=== PATIENT | female | born 1950 | race Caucasian/White ===

== ENCOUNTER 2017-03-10 16:20 | Inpatient (IN) | payer MEDICARE ==
--- NOTE | 2017-03-10 16:35 | ED Physician Chart ---
Chief Complaint/HPI - Patient Information Date Seen:: 03/10/17 Time Seen:: 16:30 Chief Complaint:: difficult behavior History of Present Illness:: pt sent from [place] for difficult behavior...she has dementia hx and has been refusing meds recently. pen[facility]entiary hx of depression. pt has no complaints but is unsure why was sent here. pt has a small nonreducable umbilical hernia that has been same/ firm/ nonreducable x at least 1 month. she is eating ok w non/v/d. pain is not worse today. no fever. hx of spinal pain Allergies:: Allergies Allergy/AdvReac Type Severity Reaction Status Date / Time No Known Allergies Allergy Verified 03/10/17 16:27 Historian:: Patient Review of Systems - Review of Systems General/Constitutional: No fever, No chills, No weight loss, No weakness, No diaphoresis, No edema, No loss of appetite Skin: No skin lesions, No rash, No bruising Head: No headache, No light-headedness Eyes: No loss of vision, No pain, No diplopia ENT: No earache, No nasal drainage, No sore throat, No tinnitus Neck: Neck pain, No swelling, No thyromegaly, No stiffness, No mass noted Cardio Vascular: No chest pain, No palpitations, No PND, No orthopnea, No edema Pulmonary: No SOB, No cough, No sputum, No wheezing GI: No nausea, No vomiting, No diarrhea, No pain, No melena, No hematochezia, No constipation, No hematemesis G/U: No dysuria, No frequency, No hematuria Musculoskeletal: No bone or joint pain, Back pain, No muscle pain Endocrine: No polyuria, No polydipsia Psychiatric: No prior psych history, No depression, No anxiety, No suicidal ideation Hematopoietic: No bruising, No lymphadenopathy Allergic/Immuno: No urticaria, No angioedema Neurological: No syncope, No focal symptoms, No weakness, No paresthesia, No headache, No seizure, No dizziness, No confusion, No vertigo Past Medical History - Past Medical History Past Medical History: Other (umbilical hernia, chronic spinal pain) Social History: Care Facility Psychiatricy History: Depression Medication: Reviewed Family Medical History - Family Member Maternal History Unknown: Yes Physical Exam - Physical Examination General/Constitutional: Awake, Well-developed, well-nourished, Alert, No distress, GCS 15, Non-toxic appearing, Ambulatory Other Gen/Cons comments:: pt ambulates around ed w/o trouble. some shuffeling of gait. alert and cooperative on arrival. wn/wh. Head: Atraumatic Eyes: Lids, conjuctiva normal, PERRL, EOMI Skin: Nl inspection, No rash, No skin lesions, No ecchymosis, Well hydrated, No lymphadenopathy ENMT: External ears, nose nl, Nasal exam nl, Lips, teeth, gums nl Neck: Nontender, Full ROM w/o pain, No JVD, No nuchal rigidity, No bruit, No mass, No stridor Respiratory: Nl effort/Exclusion, Clear to Auscultation, No Wheeze/Rhonchi/Rales Cardio Vascular: RRR, No murmur, gallop, rubs, NL S1 S2 GI: No tenderness/rebounding/guarding, No organomegaly, No hernia, Normal BS's, Nondistended, No mass/bruits, No McBurney tenderness Other GI comments:: 1-2 cm firm hernia palpable at left umbilicus...nontndr and is cw umb hernia( likely omental//but not tndr/no sx of gi occlusive)) pos nabs. no rebound. : No CVA tenderness Extremities: No tenderness or effusion, Full ROM, normal strength in all extremities, No edema, Normal digits & nails Neuro/Psych: Alert/oriented, DTR's symmetric, Normal sensory exam, Normal motor strength, Judgement/insight normal, Mood normal, Normal gait, No focal deficits Misc: normal gait, Normal back, No paraspinal tenderness Labs/Radiology/EKG Results - Lab Results Results: Laboratory Tests 03/10/17 03/10/17 03/10/17 16:35 16:57 16:57 WBC 7.1 RBC 4.14 Hgb 13.6 Hct 41.0 MCV 99.1 MCH 32.9 H MCHC Differential 33.2 RDW 12.8 Plt Count 222 MPV 7.4 Neutrophils % 45.8 Lymphocytes % 40.5 Monocytes % 11.5 H Eosinophils % 1.8 Basophils % 0.4 Sodium 137 Potassium 4.0 Chloride 112 H Carbon Dioxide 24.5 Anion Gap 4.5 L BUN 19 Creatinine 0.8 Est GFR ( Amer) > 60.0 Est GFR (Non-Af Amer) > 60.0 BUN/Creatinine Ratio 23.8 Glucose 82 Whole Bld Lactic Acid Calcium 9.3 Total Bilirubin 0.4 AST 16 ALT 12 Alkaline Phosphatase 82 Troponin I Total Protein 6.7 Albumin 4.0 Globulin 2.7 Albumin/Globulin Ratio 1.5 Triglycerides 129 Cholesterol 180 LDL Cholesterol Direct 114 HDL Cholesterol 50 TSH Salicylates < 25.0 L Urine Opiates Screen NEGATIVE Urine Methadone Screen NEGATIVE Acetaminophen < 10.0 L Ur Barbiturates Screen NEGATIVE Ur Tricyclics Screen NEGATIVE Ur Phencyclidine Scrn NEGATIVE Amphetamines Screen NEGATIVE U Methamphetamines Scrn NEGATIVE U Benzodiazepines Scrn POSITIVE H U Cocaine Metab Screen NEGATIVE U Cannabinoids Screen NEGATIVE Ethyl Alcohol < 10 03/10/17 03/10/17 03/10/17 16:57 16:57 16:57 WBC RBC Hgb Hct MCV MCH MCHC Differential RDW Plt Count MPV Neutrophils % Lymphocytes % Monocytes % Eosinophils % Basophils % Sodium Potassium Chloride Carbon Dioxide Anion Gap BUN Creatinine Est GFR ( Amer) Est GFR (Non-Af Amer) BUN/Creatinine Ratio Glucose Whole Bld Lactic Acid 1.08 Calcium Total Bilirubin AST ALT Alkaline Phosphatase Troponin I 0.01 Total Protein Albumin Globulin Albumin/Globulin Ratio Triglycerides Cholesterol LDL Cholesterol Direct HDL Cholesterol TSH 1.29 Salicylates Urine Opiates Screen Urine Methadone Screen Acetaminophen Ur Barbiturates Screen Ur Tricyclics Screen Ur Phencyclidine Scrn Amphetamines Screen U Methamphetamines Scrn U Benzodiazepines Scrn U Cocaine Metab Screen U Cannabinoids Screen Ethyl Alcohol ED Septic Shock - . Is Septic Shock (SBP<90, OR Lactate>4 mmol\L) present?: No Reassessment (Disposition) - Reassessment Reassessment Condition:: Unchanged - Diagnosis Diagnosis:: 1 difficult behavior 2 medically clear for geripsych admission 3 chronic umbilical hernia (incarcerated but no strangulation) - Patient Disposition Admitted to:: [facility] Condition at Disposition:: Unchanged ED Discharge Plan - Patient Disposition Admit/Discharge/Transfer: PT DISCHARGED HOME
[2017-03-10 17:07] LABS: % BASOPHILS 0.4 % (0.0-2.0); % EOSINOPHILS 1.8 % (0.0-5.0); % LYMPHOCYTES 40.5 % (20.0-50.0); % MONOCYTES 11.5 % (2.0-10.0); % NEUTROPHILS 45.8 % (40.0-80.0); HEMOGLOBIN 13.6 gm/dL (11.7-16.1); MEAN CELL VOLUME 99.1 fl (81-100); MEAN CORPUSCULAR HEMOGLOBIN 32.9 pg (27.0-31.0); MEAN CORPUSCULAR HGB CONC 33.2 pg (28.0-36.0); MEAN PLATELET VOLUME 7.4 fl; NEUTROPHILE ABSOLUTE 3.3 Th/cmm (1.8-8.0); PLATELET COUNT 222 Th/cmm (150-400); RED BLOOD COUNT 4.14 Mil/cmm (3.80-5.20); RED CELL DISTRIBUTION WIDTH 12.8 % (11.5-20.0); WHITE BLOOD COUNT 7.1 Th/cmm (4.8-10.8)
[2017-03-10 17:29] LABS: ACETAMINOPHEN < 10.0 ug/mL (10.0-30.0); ALB/GLOB RATIO 1.5 (1.0-1.8); ALKALINE PHOSPHATASE 82 U/L (34-104); ANION GAP 4.5 (7.0-16.0); BILIRUBIN,TOTAL 0.4 mg/dL (0.3-1.0); BUN - UREA NITROGEN 19 mg/dL (7-25); BUN/CREATININE RATIO 23.8; CALCIUM SERUM 9.3 mg/dL (8.6-10.3); CARBON DIOXIDE 24.5 mEq/L (21.0-31.0); CHLORIDE 112 mEq/L (98-107); CHOLESTEROL 180 mg/dL (<200); CREATININE - SERUM 0.8 mg/dL (0.6-1.2); GLUCOSE 82 mg/dL (70-105); SGOT 16 U/L (13-39); SGPT/ALT 12 U/L (7-52); SODIUM SERUM 137 mEq/L (136-145); TRIGLYCERIDES 129 mg/dL (<150)
[2017-03-10 18:16] LABS: AMPHETAMINE URINE NEGATIVE (NEGATIVE); BARBITURATES URINE NEGATIVE (NEGATIVE); METHADONE URINE NEGATIVE (NEGATIVE)
[2017-03-10] MEDS ORDERED: Magnesium Hydroxide (MOM) 30 mL UDC PO PRN (20:05)
[2017-03-10] MEDS ORDERED: Maalox 30 mL Cup PO PRN (20:05)
[2017-03-11] MEDS ORDERED: Magnesium Hydroxide (MOM) 30 mL UDC PO PRN (08:15)
[2017-03-11] MEDS ORDERED: MAGNESIUM OXIDE 500 MG PO SCH (09:00)
[2017-03-11] MEDS: Multivitamin Tab PO SCH (09:26)
[2017-03-11] MEDS: Multivitamin w/ Minerals Tab PO SCH (11:20)
[2017-03-11] MEDS: Potassium Chloride 20 mEq ER Tab PO SCH (11:32)
[2017-03-11] MEDS: Pantoprazole 40 mg EC Tab PO SCH (13:20)
[2017-03-11] MEDS ORDERED: Hydrocodone/APAP 5mg/325mg Tab PO PRN (17:30)
[2017-03-12 08:35] LABS: ANION GAP 6.5 (7.0-16.0); BUN - UREA NITROGEN 16 mg/dL (7-25); BUN/CREATININE RATIO 22.9; CALCIUM SERUM 9.1 mg/dL (8.6-10.3); CARBON DIOXIDE 27.4 mEq/L (21.0-31.0); CHLORIDE 105 mEq/L (98-107); CREATININE - SERUM 0.7 mg/dL (0.6-1.2); GLUCOSE 92 mg/dL (70-105); POTASSIUM SERUM 3.9 mEq/L (3.5-5.1); SODIUM SERUM 135 mEq/L (136-145)
[2017-03-12] MEDS: Multivitamin w/ Minerals Tab PO SCH (08:47)
[2017-03-12] MEDS: Multivitamin Tab PO SCH (08:47)
[2017-03-12] MEDS: Potassium Chloride 20 mEq ER Tab PO SCH (08:47)
[2017-03-12] MEDS: Pantoprazole 40 mg EC Tab PO SCH (08:52)
[2017-03-13] MEDS: Pantoprazole 40 mg EC Tab PO SCH (08:31)
[2017-03-13] MEDS: Multivitamin w/ Minerals Tab PO SCH (08:31)
[2017-03-13] MEDS: Potassium Chloride 20 mEq ER Tab PO SCH (08:32)
[2017-03-13] MEDS: Multivitamin Tab PO SCH (08:32)
[2017-03-14] MEDS: Pantoprazole 40 mg EC Tab PO SCH (09:33)
[2017-03-14] MEDS: Multivitamin Tab PO SCH (09:33)
[2017-03-14] MEDS: Multivitamin w/ Minerals Tab PO SCH (09:33)
[2017-03-14] MEDS: Potassium Chloride 20 mEq ER Tab PO SCH (09:33)
[2017-03-15] MEDS: Potassium Chloride 20 mEq ER Tab PO SCH (08:24)
[2017-03-15] MEDS: Multivitamin w/ Minerals Tab PO SCH (08:24)
[2017-03-15] MEDS: Multivitamin Tab PO SCH (08:24)
[2017-03-15] MEDS: Pantoprazole 40 mg EC Tab PO SCH (08:24)
[2017-03-16] MEDS: Multivitamin Tab PO SCH (08:33)
[2017-03-16] MEDS: Potassium Chloride 20 mEq ER Tab PO SCH (08:34)
[2017-03-16] MEDS: Multivitamin w/ Minerals Tab PO SCH (08:34)
[2017-03-16] MEDS: Pantoprazole 40 mg EC Tab PO SCH (08:34)
[2017-03-17] MEDS: Multivitamin w/ Minerals Tab PO SCH (08:23)
[2017-03-17] MEDS: Potassium Chloride 20 mEq ER Tab PO SCH (08:23)
[2017-03-17] MEDS: Pantoprazole 40 mg EC Tab PO SCH (08:25)
[2017-03-17] MEDS: Multivitamin Tab PO SCH (08:25)
[2017-03-18] MEDS: Pantoprazole 40 mg EC Tab PO SCH (09:03)
[2017-03-18] MEDS: Potassium Chloride 20 mEq ER Tab PO SCH (09:03)
[2017-03-18] MEDS: Multivitamin Tab PO SCH (09:03)
--- NOTE | 2017-03-19 08:13 | General Progress Note ---
Subjective - Review of Systems Service Date: 03/19/17 Subjective: Awake,Alert,Afebrile Objective - Results Result Diagrams: 03/10/17 16:57 03/12/17 07:40 Recent Labs: Laboratory Last Values WBC 7.1 Th/cmm (4.8-10.8) 03/10/17 16:57 RBC 4.14 Mil/cmm (3.80-5.20) 03/10/17 16:57 Hgb 13.6 gm/dL (11.7-16.1) 03/10/17 16:57 Hct 41.0 % (35.0-45.0) 03/10/17 16:57 MCV 99.1 fl (81-100) 03/10/17 16:57 MCH 32.9 pg (27.0-31.0) H 03/10/17 16:57 MCHC Differential 33.2 pg (28.0-36.0) 03/10/17 16:57 RDW 12.8 % (11.5-20.0) 03/10/17 16:57 Plt Count 222 Th/cmm (150-400) 03/10/17 16:57 MPV 7.4 fl 03/10/17 16:57 Neutrophils % 45.8 % (40.0-80.0) 03/10/17 16:57 Lymphocytes % 40.5 % (20.0-50.0) 03/10/17 16:57 Monocytes % 11.5 % (2.0-10.0) H 03/10/17 16:57 Eosinophils % 1.8 % (0.0-5.0) 03/10/17 16:57 Basophils % 0.4 % (0.0-2.0) 03/10/17 16:57 Sodium 135 mEq/L (136-145) L 03/12/17 07:40 Potassium 3.9 mEq/L (3.5-5.1) 03/12/17 07:40 Chloride 105 mEq/L (98-107) 03/12/17 07:40 Carbon Dioxide 27.4 mEq/L (21.0-31.0) 03/12/17 07:40 Anion Gap 6.5 (7.0-16.0) L 03/12/17 07:40 BUN 16 mg/dL (7-25) 03/12/17 07:40 Creatinine 0.7 mg/dL (0.6-1.2) 03/12/17 07:40 Est GFR ( Amer) > 60.0 ml/min (>90) 03/12/17 07:40 Est GFR (Non-Af Amer) > 60.0 ml/min 03/12/17 07:40 BUN/Creatinine Ratio 22.9 03/12/17 07:40 Glucose 92 mg/dL (70-105) 03/12/17 07:40 Whole Bld Lactic Acid 1.08 mmol/L (0.60-1.99) 03/10/17 16:57 Calcium 9.1 mg/dL (8.6-10.3) 03/12/17 07:40 Total Bilirubin 0.4 mg/dL (0.3-1.0) 03/10/17 16:57 AST 16 U/L (13-39) 03/10/17 16:57 ALT 12 U/L (7-52) 03/10/17 16:57 Alkaline Phosphatase 82 U/L (34-104) 03/10/17 16:57 Troponin I 0.01 ng/mL (0.01-0.05) 03/10/17 16:57 Total Protein 6.7 gm/dL (6.0-8.3) 03/10/17 16:57 Albumin 4.0 gm/dL (3.7-5.3) 03/10/17 16:57 Globulin 2.7 gm/dL 03/10/17 16:57 Albumin/Globulin Ratio 1.5 (1.0-1.8) 03/10/17 16:57 Triglycerides 129 mg/dL (<150) 03/10/17 16:57 Cholesterol 180 mg/dL (<200) 03/10/17 16:57 LDL Cholesterol Direct 114 mg/dL (75-193) 03/10/17 16:57 HDL Cholesterol 50 mg/dL (23-92) 03/10/17 16:57 TSH 1.29 uIU/ml (0.34-5.60) 03/10/17 16:57 Salicylates < 25.0 mg/L (30.0-100.0) L 03/10/17 16:57 Urine Opiates Screen NEGATIVE (NEGATIVE) 03/10/17 16:35 Urine Methadone Screen NEGATIVE (NEGATIVE) 03/10/17 16:35 Acetaminophen < 10.0 ug/mL (10.0-30.0) L 03/10/17 16:57 Ur Barbiturates Screen NEGATIVE (NEGATIVE) 03/10/17 16:35 Ur Tricyclics Screen NEGATIVE (NEGATIVE) 03/10/17 16:35 Ur Phencyclidine Scrn NEGATIVE (NEGATIVE) 03/10/17 16:35 Amphetamines Screen NEGATIVE (NEGATIVE) 03/10/17 16:35 U Methamphetamines Scrn NEGATIVE (NEGATIVE) 03/10/17 16:35 U Benzodiazepines Scrn POSITIVE (NEGATIVE) H 03/10/17 16:35 U Cocaine Metab Screen NEGATIVE (NEGATIVE) 03/10/17 16:35 U Cannabinoids Screen NEGATIVE (NEGATIVE) 03/10/17 16:35 Ethyl Alcohol < 10 mg/dL (0-10) 03/10/17 16:57 RPR NONREACTIVE (NONREACTIVE) 03/10/17 16:57 - Physical Exam Vitals and I&O: Vital Signs Temp 98.2 F 03/19/17 07:10 Pulse 65 03/19/17 07:10 Resp 19 03/19/17 07:10 BP 108/67 03/19/17 07:10 Pulse Ox 97 03/19/17 07:10 Intake & Output 03/18/17 03/19/17 03/19/17 18:59 06:59 18:59 Intake Total 1600 Balance 1600 Intake: Oral 1600 Other: # Voids 3 2 # Bowel Movements 1 Active Medications: Current Medications Acetaminophen (Tylenol) 650 mg PO Q4HR PRN PRN Reason: Mild Pain / Temp above 100 Stop: 05/09/17 20:04 Al Hydrox/Mg Hydrox/Simethicone (Maalox) 30 ml PO Q4HR PRN PRN Reason: GI DISTRESS Stop: 05/09/17 20:04 Baclofen (Lioresal) 10 mg PO BID BUD Stop: 05/10/17 10:59 Last Admin: 03/18/17 16:21 Dose: 10 mg Bisacodyl (Dulcolax 10 Mg Supp) 10 mg RC DAILY PRN PRN Reason: IF MOM NOT EFFECTIVE Stop: 05/10/17 08:14 Docusate Sodium (Colace) 100 mg PO DAILY PRN PRN Reason: Constipation Stop: 05/10/17 08:14 Donepezil HCl (Aricept) 5 mg PO HS BUD Stop: 05/11/17 20:59 Last Admin: 03/18/17 20:48 Dose: 5 mg Escitalopram Oxalate (Lexapro) 20 mg PO DAILY BUD PRN Reason: Protocol Stop: 05/10/17 17:29 Last Admin: 03/18/17 09:02 Dose: 20 mg Folic Acid (Folate) 1 mg PO DAILY BUD Stop: 05/10/17 10:59 Last Admin: 03/18/17 09:02 Dose: 1 mg Gabapentin (Neurontin) 300 mg PO HS BUD Stop: 05/10/17 20:59 Last Admin: 03/18/17 20:48 Dose: 300 mg Lorazepam (Ativan) 0.5 mg PO Q4HR PRN; Protocol PRN Reason: Anxiety Stop: 04/09/17 20:04 Lorazepam (Ativan) 0.5 mg PO TID BUD PRN Reason: Protocol Stop: 05/10/17 08:59 Last Admin: 03/18/17 20:48 Dose: 0.5 mg Magnesium Hydroxide (Milk Of Magnesia) 30 ml PO HS PRN PRN Reason: IF COLACE NOT EFFECTIVE Magnesium Hydroxide (Milk Of Magnesia) 30 ml PO Q8H PRN PRN Reason: Constipation Stop: 05/10/17 08:14 Magnesium Oxide (Mag-Oxide) 400 mg PO DAILY BUD Stop: 05/11/17 08:59 Last Admin: 03/18/17 09:03 Dose: 400 mg Mirtazapine (Remeron) 7.5 mg PO HS BUD PRN Reason: Protocol Stop: 05/10/17 20:59 Last Admin: 03/18/17 20:49 Dose: 7.5 mg Multivitamins/Vitamin C (Theragran) 1 tab PO DAILY BUD Stop: 05/10/17 08:59 Last Admin: 03/18/17 09:03 Dose: 1 tab Pantoprazole Sodium (Protonix) 40 mg PO DAILY BUD Stop: 05/10/17 11:59 Last Admin: 03/18/17 09:03 Dose: 40 mg Potassium Chloride (Klor-Con) 20 meq PO DAILY BUD Stop: 05/10/17 10:59 Last Admin: 03/18/17 09:03 Dose: 20 meq Thiamine HCl (Vitamin B1) 100 mg PO DAILY BUD Stop: 05/10/17 10:59 Last Admin: 03/18/17 09:03 Dose: 100 mg Tizanidine HCl (Zanaflex) 4 mg PO Q12H PRN PRN Reason: MUSCLE SPASMS Zolpidem Tartrate (Ambien) 5 mg PO HS PRN PRN Reason: Insomnia Stop: 05/17/17 18:20 General: Alert HEENT: Atraumatic Neck: Supple Cardiovascular: Regular rate Lungs: Clear to auscultation Abdomen: Bowel sounds Assessment/Plan - Problem List Patient Problems: All Active Problems AGITATION, PSYCH EVALUATION (Acute) Chronic pain syndrome (Acute) G89.4 Degenerative disc disease (Acute) [id number] Dementia (Acute) F03.90 Hypertension (Acute) I10 Osteoarthritis (Acute) M19.90 - Assessment Assessment: afebrile,alert,afebrile - Plan Plan: continue current treatment Nutritional Asmnt/Malnutr-PDOC - Dietary Evaluation Malnutrition Findings (Please click <Entered> for more info): Nutritional Asmnt/Malnutrition Start: 03/13/17 13: 50 Text: Status: Complete Freq: Document 03/13/17 13:50 GSUN (Rec: 03/13/17 14:04 GSUN [email or web address]) Nutritional Asmnt/Malnutrition Patient General Information Nutritional Screening Moderate Risk Screening Diagnosis Reason for visit: psychosis Pertinent Medical Hx/Surgical Hx Dementia, cervical, aspergillosis, 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 Visited pt twice, pt was resting and asked RD to re-visit both times. Unable to complete physical assessment as pt had blanket up to neck. Unable to obtain CBW, bedscale not properly calibrated. Avg PO intake 67% of meals, meeting nutritional needs. No nutritional concerns per nursing staff. Current Diet Order/ Nutrition Support PAUL Pertinent Medications Dulcolax, Colace, Folate, MOM, Mag-Oxide, Remeron, Theragran , Protonix, Klor-Con, Vitamin B1 Pertinent Labs Reviewed. Nutritional Hx/Data Height 1.63 m Height (Calculated Centimeters) 162.6 Current Weight (lbs) 63.503 kg Weight (Calculated Kilograms) 63.5 Weight (Calculated Grams) 63724.9 [place] Body Weight 120 Weight Status Approriate GI Symptoms Skin Integrity/Comment: Stu 18. Skin intact. Current %PO Fair (50-74%) Estimated Nutritional Goals BEE in Kcals: Using Current wt Calories/Kcals/Kg CBW 140lb/63.6kg Kcals Calculated 1590-1908kcal (25-30cakl/kg) Protein: Using Current wt Protein Calculated 64g (1g/kg) Fluid: ml 1590-1908ml (1ml/kcal) Nutritional Problem 1. Problem Problem No nutritional problem at this time. Intervention/Recommendation Comments 1. Continue with current diet order. Avg PO intake is adequate. Expected Outcomes/Goals Expected Outcomes/Goals 1. PO intake continue to meet at least 75% of estimated nutritional needs.
[2017-03-19] MEDS: Multivitamin Tab PO SCH (09:56)
[2017-03-19] MEDS: Pantoprazole 40 mg EC Tab PO SCH (09:56)
[2017-03-19] MEDS: Potassium Chloride 20 mEq ER Tab PO SCH (09:57)
== END 2017-03-19 19:15 | DRG 885 ==
LOC: ER 16:20 → GERO 18:30
PROVIDERS: ADMIT Psychiatry & Neurology Psychiatry; ATTEND Psychiatry & Neurology Psychiatry
DX: F29 Unspecified psychosis not due to a substance or known physiological condition (principal); F03.90 Unspecified dementia, unspecified severity, without behavioral disturbance, psychotic disturbance, mood disturbance, and anxiety; F39 Unspecified mood [affective] disorder; M19.90 Unspecified osteoarthritis, unspecified site; F41.9 Anxiety disorder, unspecified; I10 Essential (primary) hypertension; G89.4 Chronic pain syndrome; F32.9 Major depressive disorder, single episode, unspecified; K42.9 Umbilical hernia without obstruction or gangrene; M51.34 Other intervertebral disc degeneration, thoracic region; M51.36 Other intervertebral disc degeneration, lumbar region
CPT/HCPCS: 36415-UA; 80048-TC; 80053-TC; 80061-TC; 80307; 80320-TC; 80329-TC; 83605; 84443-TC; 84484-TC; 85025-TC; 86592-TC; 90899; 93005; G0410; Z7610